=== PATIENT | female | born 1990 | race Caucasian/White ===

== ENCOUNTER 2019-08-15 18:16 | Emergency (ER) | payer BC, OTHER ==
[2019-08-15 19:17] VITALS: BP 142/85
--- NOTE | 2019-08-15 19:49 | ED ---
Skin Complaint - HPI Summary HPI Summary: 29-year-old female comes in with a chief complaint of skin abscesses on her scalp and on her right knee. Skin abscess 1 is in the posterior aspect of her neck right at the hairline. On the knees on the lateral aspect. Patient's concerned about the possibility of MRSA because she had exposure to somebody with a history of MRSA. Both areas are tender to palpation no fevers no chills feels well otherwise. No drainage. - History of Current Complaint Chief Complaint: UCSkin Time Seen by Provider: 08/15/19 19:19 Stated Complaint: SKIN COMPLAINT Hx Last Menstrual Period: 07/29/19 Pain Intensity: 0 - Allergy/Home Medications Allergies/Adverse Reactions: Allergies Allergy/AdvReac Type Severity Reaction Status Date / Time latex Allergy Intermediate redness/swe Verified 08/15/19 19:17 lling PMH/Surg Hx/FS Hx/Imm Hx Previously Healthy: Yes Respiratory History: Reports: Hx Asthma - Surgical History Surgery Procedure, Year, and Place: D & C Infectious Disease History: Yes Infectious Disease History: Reports: Hx Shingles Denies: Traveled Outside the [place] in Last 30 Days - Family History Known Family History: Positive: None - Social History Alcohol Use: Occasionally Substance Use Type: Reports: None Smoking Status (MU): Never Smoked Tobacco Review of Systems Constitutional: Negative Eyes: Negative ENT: Negative Cardiovascular: Negative Gastrointestinal: Negative Musculoskeletal: Negative Positive: Other - see hpi Neurological: Negative Psychological: Normal All Other Systems Reviewed And Are Negative: Yes Physical Exam Triage Information Reviewed: Yes Vital Signs On Initial Exam: Initial Vitals Temp Pulse Resp BP Pulse Ox 98.7 F 88 15 142/85 100 08/15/19 19:12 08/15/19 19:12 08/15/19 19:12 08/15/19 19:12 08/15/19 19:12 Vital Signs Reviewed: Yes Appearance: Positive: Well-Appearing, No Pain Distress Skin: Positive: Other - On the posterior neck at the hairline on the scalp there is a 2 cm diameter area of erythema that is slightly fluctuant and tender to palpation. No drainage. Fluctuant areas not large enough for I&D at this time. The right knee is also a swelling is tender to palpation without drainage. Eyes: Positive: Normal, Conjunctiva Clear Neck: Positive: Supple Respiratory/Lung Sounds: Positive: Breath Sounds Present Musculoskeletal: Positive: Strength/ROM Intact Neurological: Positive: Normal Psychiatric: Positive: Normal AVPU Assessment: Alert Diagnostics - Vital Signs Vital Signs Temp Pulse Resp BP Pulse Ox 08/15/19 19:12 98.7 F 88 15 142/85 100 - Laboratory Lab Statement: Any lab studies that have been ordered have been reviewed, and results considered in the medical decision making process. Course/Dx - Diagnoses Provider Diagnoses: Skin abscess Discharge ED - Sign-Out/Discharge Documenting (check all that apply): Patient Departure All imaging exams completed and their final reports reviewed: No Studies - Discharge Plan Condition: Stable Disposition: HOME Prescriptions: Sulfamethox/Trimethoprim DS* [Bactrim DS 800/160 TAB*] 1 tab PO BID #20 tab Patient Education Materials: Abscess (ED) Referrals: Airam Oropeza [Primary Care Provider] - Additional Instructions: FOLLOW UP WITH YOUR DOCTOR IF NOT COMPLETELY IMPROVED. GET REEVALUATED SOONER IF NOT IMPROVING OR WORSE OR ANY QUESTIONS OR CONCERNS. - Billing Disposition and Condition Condition: STABLE Disposition: Home
== END 2019-08-15 19:58 | disposition home or self-care (01) ==
LOC: UCCORT 18:16
DX: L02.415 Cutaneous abscess of right lower limb (principal); L02.811 Cutaneous abscess of head [any part, except face]; J45.909 Unspecified asthma, uncomplicated; Z91.040 Latex allergy status
CPT/HCPCS: 99212; G0463